=== PATIENT | female | born 1940 | race Caucasian/White ===

== ENCOUNTER 2019-02-01 19:50 | Inpatient (IN) | payer OTHER ==
[~2019-02-01] VITALS: Ht 188 cm; Wt 88.5 kg
[~2019-02-01 19:50] MED LIST: GLUCOPHAGE XR500 MG; METOPROLOL SUC100 MG; PRAVASTATIN SOD40 MG; SYNTHROID112 MCG; XARELTO20 MG; ZANTAC 7575 MG
[2019-02-01] MEDS ORDERED: LASIX20 MG (21:26)
[2019-02-01] MEDS ORDERED: COZAAR25 MG (21:26)
[2019-02-07] MEDS ORDERED: LEVAQUIN750 MG PO (08:31)
[2019-02-07] MEDS ORDERED: MEDROLPACK PO (08:31)
== END 2019-02-07 11:42 | disposition home or self-care (01) | DRG 191 ==
LOC: ER 19:50 → SEC-K 02-02 09:46 → MEDJ 02-02 09:46
PROVIDERS: ADMIT Internal Medicine
PROC: B246ZZZ Ultrasonography of Right and Left Heart (ICD-10-PCS; principal; 2019-02-02)
PROC: 3E0F7GC Introduction of Other Therapeutic Substance into Respiratory Tract, Via Natural or Artificial Opening (ICD-10-PCS; 2019-02-02)
PROC: 0T9B70Z Drainage of Bladder with Drainage Device, Via Natural or Artificial Opening (ICD-10-PCS; 2019-02-02)
PROC: 4A12X4Z Monitoring of Cardiac Electrical Activity, External Approach (ICD-10-PCS; 2019-02-02)
PROC: BB24Y0Z Computerized Tomography (CT Scan) of Bilateral Lungs using Other Contrast, Unenhanced and Enhanced (ICD-10-PCS; 2019-02-03)
DX: J44.0 Chronic obstructive pulmonary disease with (acute) lower respiratory infection (principal); I50.22 Chronic systolic (congestive) heart failure; I48.0 Paroxysmal atrial fibrillation; I11.0 Hypertensive heart disease with heart failure; I08.0 Rheumatic disorders of both mitral and aortic valves; I69.318 Other symptoms and signs involving cognitive functions following cerebral infarction; E03.8 Other specified hypothyroidism; E11.9 Type 2 diabetes mellitus without complications; R31.0 Gross hematuria; J20.9 Acute bronchitis, unspecified; N39.8 Other specified disorders of urinary system; Z79.01 Long term (current) use of anticoagulants; Z79.4 Long term (current) use of insulin
CPT/HCPCS: 71275

== ENCOUNTER 2019-10-30 07:59 | Outpatient (CLI) | payer OTHER ==
[~2019-10-30 07:59] MED LIST changes: +COZAAR25 MG; +LASIX20 MG; +LEVAQUIN750 MG PO; +MEDROLPACK PO
== END 2019-10-30 08:35 | disposition home or self-care (01) ==
LOC: NUCLEAR 07:59
PROVIDERS: ATTEND Internal Medicine Cardiovascular Disease
DX: I50.20 Unspecified systolic (congestive) heart failure (principal); R07.89 Other chest pain
CPT/HCPCS: 78452; 93017; A9500; J0153

== ENCOUNTER 2019-10-30 12:01 | Outpatient (CLI) | payer OTHER | END 2019-10-30 12:08 | disposition home or self-care (01) | LOC: LAB 12:01 | DX: J44.9 Chronic obstructive pulmonary disease, unspecified (principal); J45.998 Other asthma ==

== ENCOUNTER 2020-03-16 16:14 | Emergency (ER) | payer OTHER ==
[~2020-03-16] VITALS: Ht 160 cm; Wt 83.9 kg
[2020-03-16] MEDS ORDERED: NEURONTIN300 MG (16:28)
[2020-03-16] MEDS ORDERED: COZAAR100 MG PO (16:29)
== END 2020-03-16 21:22 | disposition home or self-care (01) ==
LOC: ER 16:14
DX: R23.3 Spontaneous ecchymoses (principal); M79.662 Pain in left lower leg; M79.661 Pain in right lower leg

== ENCOUNTER 2020-04-30 09:21 | Outpatient (CLI) | payer OTHER ==
[~2020-04-30 09:21] MED LIST changes: +COZAAR100 MG PO; +NEURONTIN300 MG
== END 2020-04-30 09:30 | disposition home or self-care (01) ==
LOC: LAB 09:21
PROVIDERS: ATTEND Internal Medicine Hematology & Oncology
DX: D50.8 Other iron deficiency anemias (principal); R79.89 Other specified abnormal findings of blood chemistry; I10 Essential (primary) hypertension; R74.02 Elevation of levels of lactic acid dehydrogenase [LDH]; K76.89 Other specified diseases of liver; D51.1 Vitamin B12 deficiency anemia due to selective vitamin B12 malabsorption with proteinuria; D51.0 Vitamin B12 deficiency anemia due to intrinsic factor deficiency; E03.8 Other specified hypothyroidism; E06.3 Autoimmune thyroiditis; C56.9 Malignant neoplasm of unspecified ovary; R97.8 Other abnormal tumor markers; R97.1 Elevated cancer antigen 125 [CA 125]; R97.0 Elevated carcinoembryonic antigen [CEA]; I48.21 Permanent atrial fibrillation; E11.9 Type 2 diabetes mellitus without complications; E78.2 Mixed hyperlipidemia; D47.2 Monoclonal gammopathy

== ENCOUNTER 2020-07-21 08:05 | Outpatient (CLI) | payer OTHER | END 2020-07-21 08:06 | disposition home or self-care (01) | LOC: LAB 08:05 | PROVIDERS: ATTEND Internal Medicine Hematology & Oncology | DX: D47.2 Monoclonal gammopathy (principal); C90.00 Multiple myeloma not having achieved remission; D63.8 Anemia in other chronic diseases classified elsewhere; R71.8 Other abnormality of red blood cells; D51.1 Vitamin B12 deficiency anemia due to selective vitamin B12 malabsorption with proteinuria; I42.8 Other cardiomyopathies; I10 Essential (primary) hypertension; E11.8 Type 2 diabetes mellitus with unspecified complications; E78.2 Mixed hyperlipidemia; E03.8 Other specified hypothyroidism ==

== ENCOUNTER 2020-07-21 09:03 | Outpatient (CLI) | payer OTHER | END 2020-07-21 09:23 | disposition home or self-care (01) | LOC: NUCLEAR 09:03 | PROVIDERS: ATTEND Internal Medicine Cardiovascular Disease | DX: I11.9 Hypertensive heart disease without heart failure (principal); I70.223 Atherosclerosis of native arteries of extremities with rest pain, bilateral legs; I77.89 Other specified disorders of arteries and arterioles; I49.8 Other specified cardiac arrhythmias ==

== ENCOUNTER 2020-07-21 11:36 | Inpatient (IN) | payer OTHER ==
[~2020-07-21] VITALS: Ht 160 cm; Wt 90.7 kg
[2020-07-26] MEDS ORDERED: XARELTO15 MG PO (15:51)
[2020-07-26] MEDS ORDERED: ISOSORBIDE MONO30 MG PO (15:51)
[2020-07-26] MEDS ORDERED: LIPITOR20 MG PO (15:51)
[2020-07-26] MEDS ORDERED: TOPROL XL100 M1 PO (15:52)
[2020-07-26] MEDS ORDERED: FAMOTIDINE20 MG PO (15:52)
[2020-07-26] MEDS ORDERED: LEVOTHYROXINE100 MCG PO (15:53)
[2020-07-26] MEDS ORDERED: GLUCOPHAGE XR500 MG PO (15:54)
== END 2020-07-27 | disposition home or self-care (01) | DRG 292 ==
LOC: ER 11:36 → SEC-K 17:41 → MEDI 19:06 → SEC-K 07-26 23:47
PROVIDERS: ADMIT Internal Medicine; ATTEND Internal Medicine
PROC: 4A033R1 Measurement of Arterial Saturation, Peripheral, Percutaneous Approach (ICD-10-PCS; principal; 2020-07-21)
PROC: B54DZZZ Ultrasonography of Bilateral Lower Extremity Veins (ICD-10-PCS; 2020-07-22)
DX: I11.0 Hypertensive heart disease with heart failure (principal); I48.20 Chronic atrial fibrillation, unspecified; I69.354 Hemiplegia and hemiparesis following cerebral infarction affecting left non-dominant side; I50.813 Acute on chronic right heart failure; Z79.01 Long term (current) use of anticoagulants; Z20.822 Contact with and (suspected) exposure to COVID-19; E11.65 Type 2 diabetes mellitus with hyperglycemia; E03.8 Other specified hypothyroidism

== ENCOUNTER 2021-07-15 08:07 | Outpatient (CLI) | payer OTHER ==
[~2021-07-15 08:07] MED LIST changes: +FAMOTIDINE20 MG PO; +GLUCOPHAGE XR500 MG PO; +ISOSORBIDE MONO30 MG PO; +LEVOTHYROXINE100 MCG PO; +LIPITOR20 MG PO; +TOPROL XL100 M1 PO; +XARELTO15 MG PO
== END 2021-07-15 08:11 | disposition home or self-care (01) ==
LOC: LAB 08:07
PROVIDERS: ATTEND Internal Medicine Hematology & Oncology
DX: I48.20 Chronic atrial fibrillation, unspecified (principal); D51.1 Vitamin B12 deficiency anemia due to selective vitamin B12 malabsorption with proteinuria; I10 Essential (primary) hypertension; E11.9 Type 2 diabetes mellitus without complications; E78.2 Mixed hyperlipidemia; D47.2 Monoclonal gammopathy; E03.8 Other specified hypothyroidism

== ENCOUNTER 2021-12-01 07:38 | Outpatient (CLI) | payer OTHER | END 2021-12-01 07:44 | disposition home or self-care (01) | LOC: NUCLEAR 07:38 | PROVIDERS: ATTEND Psychiatry & Neurology Clinical Neurophysiology | DX: G30.1 Alzheimer's disease with late onset (principal); F01.50 Vascular dementia, unspecified severity, without behavioral disturbance, psychotic disturbance, mood disturbance, and anxiety; Z88.0 Allergy status to penicillin; Z88.2 Allergy status to sulfonamides; Z88.8 Allergy status to other drugs, medicaments and biological substances | CPT/HCPCS: 78814; A9552 ==

== ENCOUNTER 2022-01-13 07:56 | Outpatient (CLI) | payer OTHER | END 2022-01-13 07:59 | disposition home or self-care (01) | LOC: LAB 07:56 | PROVIDERS: ATTEND Internal Medicine Hematology & Oncology | DX: D50.8 Other iron deficiency anemias (principal); R79.9 Abnormal finding of blood chemistry, unspecified; I10 Essential (primary) hypertension; R74.02 Elevation of levels of lactic acid dehydrogenase [LDH]; K76.89 Other specified diseases of liver; D51.8 Other vitamin B12 deficiency anemias; E55.9 Vitamin D deficiency, unspecified; C56.9 Malignant neoplasm of unspecified ovary; R97.8 Other abnormal tumor markers; R97.1 Elevated cancer antigen 125 [CA 125]; R97.0 Elevated carcinoembryonic antigen [CEA] ==

== ENCOUNTER 2022-04-20 12:32 | Inpatient (IN) | payer OTHER ==
[~2022-04-20] VITALS: Ht 157.5 cm; Wt 88.5 kg
== END 2022-04-24 19:07 | disposition home or self-care (01) | DRG 291 ==
LOC: ER 12:32 → EMR PED 12:39 → ER 12:39 → SEC-K 21:30 → MEDI 04-21 08:41
PROVIDERS: ADMIT Internal Medicine; ATTEND Internal Medicine
PROC: 4A12X4Z Monitoring of Cardiac Electrical Activity, External Approach (ICD-10-PCS; principal; 2022-04-20)
PROC: B24BYZZ Ultrasonography of Heart with Aorta using Other Contrast (ICD-10-PCS; 2022-04-20)
PROC: B54DZZZ Ultrasonography of Bilateral Lower Extremity Veins (ICD-10-PCS; 2022-04-20)
PROC: 3E0F7SF Introduction of Other Gas into Respiratory Tract, Via Natural or Artificial Opening (ICD-10-PCS; 2022-04-20)
DX: I11.0 Hypertensive heart disease with heart failure (principal); I50.33 Acute on chronic diastolic (congestive) heart failure; I69.354 Hemiplegia and hemiparesis following cerebral infarction affecting left non-dominant side; I50.82 Biventricular heart failure; I27.29 Other secondary pulmonary hypertension; I48.0 Paroxysmal atrial fibrillation; E11.40 Type 2 diabetes mellitus with diabetic neuropathy, unspecified; F32.A Depression, unspecified; E03.9 Hypothyroidism, unspecified; F01.50 Vascular dementia, unspecified severity, without behavioral disturbance, psychotic disturbance, mood disturbance, and anxiety; E66.9 Obesity, unspecified; Z68.35 Body mass index [BMI] 35.0-35.9, adult; Z79.84 Long term (current) use of oral hypoglycemic drugs

== ENCOUNTER 2022-09-14 14:43 | Emergency (ER) | payer OTHER ==
[~2022-09-14] VITALS: Ht 152.4 cm; Wt 81.6 kg
[2022-09-14] MEDS ORDERED: PEPCID AC20 MG PO (22:14)
[2022-09-14] MEDS ORDERED: CIPRO500 MG PO (22:14)
== END 2022-09-14 22:57 | disposition home or self-care (01) ==
LOC: ER 14:43
DX: K80.20 Calculus of gallbladder without cholecystitis without obstruction (principal); N39.0 Urinary tract infection, site not specified; N32.3 Diverticulum of bladder; Z88.0 Allergy status to penicillin; Z88.2 Allergy status to sulfonamides; Z88.8 Allergy status to other drugs, medicaments and biological substances